=== PATIENT | male | born 1960 | race Two or more races ===

== ENCOUNTER → 2024-09-20 | Emergency (ER) | payer OTHER ==
[~2024-09-20] VITALS: Ht 180.3 cm; Wt 88.0 kg
[~2024-09-20] MED LIST: ATORVASTATIN CA10 MG PO; AZITHROMYCIN500 MG PO; BENZONATATE 200 MG CAPSULE PO ONE; BENZONATATE200 M1 PO; FAMOTIDINE/PF 20 MG/2 ML VIAL ONE; FAMOtidine 10 MG/ML (4ML VIAL) IV ONE; IPRATROPIUM BROMIDE 0.5 MG/2.5 ML AMPUL.NEB IH ONE; IPRATROPIUM BROMIDE 0.5 MG/2.5 ML AMPUL.NEB IH SCH; LEVALBUTER0.63 MG/3 IH; LEVALBUTEROL HCL 1.25 MG/3 ML SOLUTION IH ONE; LEVALBUTEROL HCL 1.25 MG/3 ML SOLUTION IH SCH; MAGNESIUM SULFATE IN WATER 4 GM/100 ML PIGGYBACK IV ONE; MEDROLPACK PO; METHYLPREDNISOLONE SOD SUCC 125 MG VIAL IV ONE; METHYLPREDNISOLONE SOD SUCC 125 MG VIAL ONE; NORVASC5 MG PO; PROTONIX40 MG PO; PULMICORT FLEX90 MCG IH; SINGULAIR10 MG PO; levoFLOXacin IN DEXTROSE 5 % 500MG/100ML PIGGYBAG IV ONE
[2024-09-20 10:23] LABS: ABG PH 7.466 (7.35-7.45); ABG PO2 85.4 mmHg (80-100); ABG pCO2 35.4 mmHg (35-45); BASE EXCESS 1.6 mmol/l; BICARBONATE 24.9 mmol/l (23-25); SaO2 97.1 %
[2024-09-20 10:49] LABS: BASO % 1.3 % (0.1-1.2); EOS # 0.15 (0.04-0.54); EOS % 1.5 % (0.7-7.0); HEMATOCRIT 46.6 % (40.1-51.0); HEMOGLOBIN 16.1 g/dL (13.7-17.5); LYMPH # 1.99 (1.18-3.74); LYMPH % 19.3 % (19.3-53.1); MEAN CORPUSCULAR HEMOGLOBIN 31.3 pg (25.6-32.2); MONO # 0.57 (0.24-0.82); MONO % 5.5 % (4.7-12.5); NEUT # 7.34 (1.56-6.13); NEUT % 71.2 % (34.0-71.1); PLATELET COUNT 241 K/uL (163-369); RED BLOOD COUNT 5.15 M/uL (4.63-6.08); RED CELL DISTRIBUTION WIDTH 12.5 % (11.6-14.4)
[2024-09-20 11:03] LABS: allen test SATISFACTORY; mode ROOM AIR; o2 21 %; puncture site RADIAL RIGHT
[2024-09-20 11:15] LABS: INFLUENZA A AG NEGATIVE (NEGATIVE); INFLUENZA B AG NEGATIVE (NEGATIVE)
[2024-09-20 11:17] LABS: PROTHROMBIN TIME 10.9 SECONDS (9.0-11.5)
[2024-09-20 11:19] LABS: ALBUMIN 3.6 gm/dL (3.4-5.0); BILIRUBIN TOTAL 0.83 mg/dL (0.3-1.2); CALCIUM 9.2 mg/dL (8.5-10.1); CREATININE SERUM 0.54 mg/dL (0.70-1.30); GFR 152.23; GLOBULINA 4.6 G/DL (2.4-3.5); POTASSIUM 3.65 mEq/L (3.5-5.1); TOTAL PROTEIN 8.2 gm/dL (6.4-8.2)
[2024-09-20 11:43] LABS: COVID-19 AG NEGATIVE (NEGATIVE)
[2024-09-20 11:48] LABS: PARTIAL THROMBOPLASTIN TIME < 20.0 SECONDS (22.0-34.0)
[2024-09-20 12:43] LABS: PH,URINE 5.5 (5.0-8.0); URINE APPEARANCE Clear; URINE BILIRRUBIN Negative (NEGATIVE); URINE BLOOD Large; URINE COLOR Yellow; URINE GLUCOSE Negative (NEGATIVE); URINE KETONE Trace (NEGATIVE); URINE LEUKOCYTE Moderate; URINE NITRATE Negative; URINE PROTEIN Trace (NEGATIVE)
[2024-09-20 12:46] LABS: URINE BACTERIA 324.2 uL (0.0-1933); URINE WBC 316.1 uL (0.0-23.2)
[2024-09-20 12:51] LABS: URINE CAST 0.14 uL (0.0-1.40)
== END | disposition home or self-care (01) ==
LOC: ER 08:19 → EDBD 08:52 → ER 08:52
PROVIDERS: General Practice
DX: J40 Bronchitis, not specified as acute or chronic (principal); R06.02 Shortness of breath; Z20.822 Contact with and (suspected) exposure to COVID-19; I10 Essential (primary) hypertension; Z88.0 Allergy status to penicillin; Z85.46 Personal history of malignant neoplasm of prostate; Z87.09 Personal history of other diseases of the respiratory system